=== PATIENT | male | born 1950 | race Caucasian/White ===

== ENCOUNTER 2025-05-05 10:02 | Day surgery (SDC) | payer MEDICARE, BC, SELFPAY ==
[2025-04-30 10:38] VITALS: BMI 35.9
--- NOTE | 2025-05-02 15:33 | EXP.HP ---
History of Present Illness *Admission Date: 05/05/25 *History of present illness: Mr. Romero is a 74-year-old gentleman who is here for screening/surveillance colonoscopy. The patient does have a personal history of adenomatous colon polyps. His colonoscopy in September 2014 revealed 15 colon polyps (tubular adenomas x 12/hyperplastic polyps x 3) which were removed. His colonoscopy in September 2016 revealed 5 polyps (tubular adenomas x 3/small serrated adenomas x 2) which were removed. His colonoscopy in March 2020 revealed 6 polyps (small serrated adenomas x 3/tubular adenomas x 2 and hyperplastic polyp x 1). His last colonoscopy with id in April 2023 revealed 6 polyps (tubular adenoma x 4/small serrated adenoma x 1/hyperplastic polyp x 1) which were removed. Patient does have a history of renal cell carcinoma and underwent right nephrectomy (Gordon Jules MD). He reports no abdominal pain, weight loss, change in his bowel habits or rectal bleeding. He reports no family history of colon cancer. The examination is deemed medically necessary for screening/surveillance colonoscopy. The patient has been seen, interviewed and examined prior to the procedure by both myself and the anesthesia provider. [facility] Disclaimer: The information contained in this section may have been updated after the patient was seen, as this information can be updated by other users. Medical History Arthritis Irregular heartbeat Bulging disc SI joint arthritis History of kidney cancer Surgical History Hx of surgical procedure History of hip replacement H/O kidney removal Family History Other Heart attack Social History (Updated 05/05/25 @ 11:37 by Wilman Henley CRNA) Smoking Status: Never smoker alcohol intake: never substance use type: denies use current occupational status: retired Travel in the last 8 weeks?: None Have you lived/traveled outside [place] in past 30 days?: No Contact w/someone who lives/traveled outside [place] past 30 days?: No Exposure to someone with infectious disease in past 14 days?: No Do you have a fever (greater than 100.4 F or 38 C)?: No Have you tested positive for COVID-19?: No Exposed to someone with COVID-19 in past 14 days?: No Do you have a sore throat?: No Do you have a cough?: No Do you have any weakness?: No Are you experiencing any nausea/vomitting?: No Do you have any diarrhea?: No Are you experiencing any unusual bleeding?: No Do you have any muscle aches/pain?: No Do you have any abdominal pain?: No Are you experiencing loss of taste or smell?: No Review of Systems Review of Systems Review of systems (narrative): Negative *Cardiovascular Comments: Negative *Gastrointestinal Comments: Negative *Genitourinary Comments: Negative *Musculoskeletal Comments: Negative *Neurologic Comments: Negative Meds Home Medications and Allergies Home Medications ?Medication ?Instructions ?Recorded ?Confirmed ?Type clonidine HCl 0.1 mg tablet 0.1 mg PO DAILY 04/30/25 05/05/25 History clonidine HCl 0.2 mg tablet 0.2 mg PO HS 04/30/25 05/05/25 History doxazosin 8 mg tablet 8 mg PO BID 04/30/25 05/05/25 History finasteride 5 mg tablet 5 mg PO DAILY 04/30/25 05/05/25 History hydrochlorothiazide 25 mg tablet 25 mg PO DAILY 04/30/25 05/05/25 History hydrocodone 10 mg-acetaminophen 1 tab PO DAILY PRN Pain 04/30/25 05/05/25 History 325 mg tablet olmesartan 40 mg tablet 40 mg PO DAILY 04/30/25 05/05/25 History New Prescriptions to Start Prescriptions: Allergies Allergy/AdvReac Type Severity Reaction Status Date / Time amoxicillin Allergy Hives Verified 05/05/25 10:53 metronidazole Allergy Hives Verified 05/05/25 10:53 tetracycline Allergy Hives Verified 05/05/25 10:53 Exam Data for Last 24 hours I & O for Last 24 hours: Intake & Output 04/29/25 04/30/25 05/01/25 05/02/25 23:59 23:59 23:59 23:59 Weight 280 lb *Routine HEENT Exam Head: Present normocephalic Eye: Present EOMI and PERRL ENT: Present mucous membranes moist *Routine Neck Exam Neck: Present supple *Routine Respiratory Exam Respiratory: Present CTA bilaterally *Routine Cardiovascular Exam Cardiovascular: Present RRR *Routine Abdominal Exam Abdominal: Present soft and normoactive bowel sounds; Absent tenderness *Routine Rectal Exam Rectal:: deferred *Routine Genitalia Exam Genitalia:: deferred *Routine Extremities Exam Extremities: Absent cyanosis, clubbing or edema *Routine Skin Exam Skin: Present warm; Absent rash *Routine Neurological Exam Neurological: Present alert and oriented X3 Assessment and Plan *Assessment and plan (1) Personal history of adenomatous and serrated colon polyps: Status: Acute Category: Medical Code(s): Z86.0101 - Personal history of adenomatous and serrated colon polyps (2) Screening for colon cancer: Status: Acute Category: Medical Code(s): Z12.11 - Encounter for screening for malignant neoplasm of colon Plan A/P: 1. Personal history of adenomatous colon polyps is the preprocedural diagnosis. The patient will be anesthetized/sedated using MAC sedation. The patient has been seen and examined. Cardiac and lung assessment prior to the examination is stable. Proceed with planned screening/surveillance colonoscopy.
--- NOTE | 2025-05-05 07:04 | HMH.PROCNOTE ---
[facility] Procedure Note Date: 05/05/25 Time: 12:08 Procedure Note:: Colonoscopy Procedure Report: Colonoscopy with cold snare polypectomy Endoscopist: Drew Lucio II, MD Referring physician: Saad Welsh MD Date of Procedure: May 05, 2025 Equipment: Olympus [id number] adult colonoscope Sedation: MAC sedation Indication: Mr. Romero is a 74-year-old gentleman who is here for screening/surveillance colonoscopy. The patient does have a personal history of adenomatous colon polyps. His colonoscopy in September 2014 revealed 15 colon polyps (tubular adenomas x 12/hyperplastic polyps x 3) which were removed. His colonoscopy in September 2016 revealed 5 polyps (tubular adenomas x 3/small serrated adenomas x 2) which were removed. His colonoscopy in March 2020 revealed 6 polyps (small serrated adenomas x 3/tubular adenomas x 2 and hyperplastic polyp x 1). His last colonoscopy with me in April 2023 revealed 6 polyps (tubular adenoma x 4/small serrated adenoma x 1/hyperplastic polyp x 1) which were removed. Patient does have a history of renal cell carcinoma and underwent right nephrectomy (Gordon Jules MD). He reports no abdominal pain, weight loss, change in his bowel habits or rectal bleeding. He reports no family history of colon cancer. The examination is deemed medically necessary for screening/surveillance colonoscopy. Procedure: Prior to the procedure, a history and physical exam was performed, and patient's medications and allergies were reviewed. The risks, benefits and alternatives of the sedation and procedure were discussed with the patient. All questions were answered and informed consent was obtained. The patient was brought to the procedure room. Patient identification and proposed procedure were verified by the physician and the nurse. The patient was placed in a left lateral decubitus position and the scope was passed under direct vision. Throughout the procedure, the patient's blood pressure, pulse, and oxygen saturations were monitored continuously. The colonoscopy was accomplished without difficulty. The patient tolerated the procedure well. Findings: On digital rectal examination there was normal rectal tone. There were no external hemorrhoids. The prostate was 2+, mildly firm but symmetric without nodules. The colonoscope was introduced through the anal canal to the rectum and advanced to the cecum. The ileocecal valve and appendiceal orifice were identified. The scope was advanced a short distance into the ileum which appeared grossly normal. The scope was then withdrawn into the colon. There were 4 polyps (cecum x 1 (3 mm), ascending x 2 (3 and 4 mm) and descending x 1 (3 mm)). These were all removed via cold snare polypectomy. The remaining cecum, ascending and transverse colon and mucosa were grossly normal. There were scattered diverticuli throughout the descending and sigmoid colon (LEFT colon). The rectum itself was normal. Upon retroflexion within the rectum there were grade 2 internal hemorrhoids. The preparation was excellent throughout with [place] Preparation Score of 9. The cecal time was 13 minutes. Impression: 1. Diminutive colonic polyps x 4 2. Left-sided diverticulosis 3. Grade 2 internal hemorrhoids Plan: I will follow-up the polyp histology and recommend repeat screening/surveillance colonoscopy again in 5 years. This will certainly be based upon his health and desire to continue preventative surveillance.
[2025-05-05 10:54] VITALS: BP 143/82; PULSE 58; RESP 18; TEMP 36.2; O2SAT 99
[2025-05-05] MEDS: LACTATED RINGERS 1000ML 1,000 ML 50 ML IV (11:05)
--- NOTE | 2025-05-05 11:36 | EXP.ANES.CKL ---
[facility] Disclaimer: The information contained in this section may have been updated after the patient was seen, as this information can be updated by other users. Medical History Arthritis Irregular heartbeat Bulging disc SI joint arthritis History of kidney cancer Surgical History Hx of surgical procedure History of hip replacement H/O kidney removal Family History Other Heart attack Social History Smoking Status: Never smoker alcohol intake: never substance use type: denies use current occupational status: retired Travel in the last 8 weeks?: None [facility] Anesthesia Checklist Patient Identification Patient Identification: Arm Band and Verbal (Name & ) Structural Data Admitted From: Home Planned Operative Procedure/s: Colonoscopy Consent for Planned Operative Procedure(s) Verified: Yes Verified Documents: Surgical Consent NPO Status Verified Time NPO: 00:00 Chart Verification Results Verified: None Additional verifications Anesthesia Reactions: No Airway Assessment Mallampati Score:: Class II C-Spine Mobility Assessed: Yes TMJ Mobility Assessed: Yes Dentition: Good Dentition Neurological Assessment Level of Consciousness: Awake, Alert and Appropriate Hx Seizures: No Numbness or tingling in extremities: No Anesthesia Plan Anesthesia Risk discussed: Yes Anesthesia Plan: Verified ASA Class: II Anesthesia Type: MAC
[2025-05-05 12:10] VITALS: BP 114/62; PULSE 65; RESP 18; TEMP 36.3; O2SAT 96
[2025-05-05 12:25] VITALS: BP 139/97; PULSE 51; RESP 18; O2SAT 100
[2025-05-05 12:40] VITALS: BP 146/79; PULSE 51; RESP 18; O2SAT 100
== END 2025-05-05 12:43 | disposition home or self-care (01) ==
PROVIDERS: PCP Internal Medicine; Visit Provider Internal Medicine Gastroenterology
PROC: 0DJD8ZZ Inspection of Lower Intestinal Tract, Via Natural or Artificial Opening Endoscopic (ICD-10-PCS; CPT 45378; principal; 2025-05-05 12:00)
DX: Z12.11 Encounter for screening for malignant neoplasm of colon (principal); D12.0 Benign neoplasm of cecum; D12.2 Benign neoplasm of ascending colon; D12.4 Benign neoplasm of descending colon; K57.30 Diverticulosis of large intestine without perforation or abscess without bleeding; K64.0 First degree hemorrhoids; Z90.5 Acquired absence of kidney; Z85.528 Personal history of other malignant neoplasm of kidney; Z88.0 Allergy status to penicillin; Z88.1 Allergy status to other antibiotic agents; Z86.0102 Personal history of hyperplastic colon polyps; Z86.0101 Personal history of adenomatous and serrated colon polyps
CPT/HCPCS: 45385; 88305; J2003; J2704; J7120